=== PATIENT | female | born 1955 | race Caucasian/White ===

== ENCOUNTER 2021-01-24 19:27 | Emergency (ER) | payer OTHER, BC ==
[2021-01-24 19:30] VITALS: BP 189/97; PULSE 76; TEMP 98; BMI 34.2
[2021-01-24] MEDS ORDERED: DIPHTH,PERTUSS(ACELL),TET 0.5 ML DISP.SYRIN IM ONE ×2 (19:56→20:21)
== END 2021-01-24 20:43 | disposition home or self-care (01) ==
LOC: JERFT 19:27
PROC: 0HQFXZZ Repair Right Hand Skin, External Approach (ICD-10-PCS; principal; 2021-01-24)
PROC: 3E0234Z Introduction of Serum, Toxoid and Vaccine into Muscle, Percutaneous Approach (ICD-10-PCS; 2021-01-24)
DX: S61.011A Laceration without foreign body of right thumb without damage to nail, initial encounter (principal)
CPT/HCPCS: 12001-25; 90471; 99284-25